=== PATIENT | female | born 1930 | race Caucasian/White ===

== ENCOUNTER → 2017-03-14 | Outpatient (CLI) | payer MEDICARE ==
[~2017-03-14] MED LIST: NORCO 325 MG-51 TAB PO
== END ==
LOC: MC.RAD 09:49
DX: Z12.31 Encounter for screening mammogram for malignant neoplasm of breast (principal); N60.02 Solitary cyst of left breast; N60.01 Solitary cyst of right breast

== ENCOUNTER → 2018-04-01 | Outpatient (CLI) | payer MEDICARE | LOC: MC.RAD 10:38 | DX: Z12.31 Encounter for screening mammogram for malignant neoplasm of breast (principal) ==

== ENCOUNTER 2019-04-01 20:38 | Emergency (ER) | payer MEDICARE ==
[~2019-04-01] VITALS: Ht 165.1 cm; Wt 68.2 kg
[2019-04-01 20:53] VITALS: BP 134/68; PULSE 86; TEMP 97.9
== END 2019-04-01 22:00 | disposition home or self-care (01) ==
LOC: COL.ER 20:38
DX: S61.213A Laceration without foreign body of left middle finger without damage to nail, initial encounter (principal); W26.0XXA Contact with knife, initial encounter; Y92.009 Unspecified place in unspecified non-institutional (private) residence as the place of occurrence of the external cause

== ENCOUNTER → 2019-04-07 | Outpatient (CLI) | payer MEDICARE | LOC: MC.RAD 13:13 | DX: Z12.31 Encounter for screening mammogram for malignant neoplasm of breast (principal); N63.10 Unspecified lump in the right breast, unspecified quadrant; N63.20 Unspecified lump in the left breast, unspecified quadrant ==

== ENCOUNTER → 2020-07-20 | Outpatient (CLI) | payer MEDICARE | LOC: COL.RAD | DX: N23 Unspecified renal colic (principal) ==

== ENCOUNTER → 2020-07-21 | Outpatient (CLI) | payer MEDICARE | LOC: MC.RAD 13:04 | DX: Z12.31 Encounter for screening mammogram for malignant neoplasm of breast (principal) ==

== ENCOUNTER → 2020-12-02 | Outpatient (CLI) | payer MEDICARE | LOC: COL.RAD 08:44 | DX: N85.8 Other specified noninflammatory disorders of uterus (principal); R93.89 Abnormal findings on diagnostic imaging of other specified body structures ==

== ENCOUNTER → 2021-04-15 | Outpatient (CLI) | payer MEDICARE | LOC: COL.RAD 08:35 | DX: M25.551 Pain in right hip (principal) | CPT/HCPCS: J3301; Q9967 ==

== ENCOUNTER → 2021-08-17 | Outpatient (CLI) | payer MEDICARE | LOC: COL.RAD 10:30 | DX: M16.11 Unilateral primary osteoarthritis, right hip (principal) | CPT/HCPCS: J3301 ==